=== PATIENT | female | born 1960 ===

== ENCOUNTER 2017-10-23 12:21 | Outpatient (CLI) | payer OTHER ==
[~2017-10-23 12:21] MED LIST: CALTRATE 600 W-1 TAB; NEXIUM20 MG/PACK
== END 2017-10-23 12:25 | disposition home or self-care (01) ==
LOC: MAMO-SONO 12:21
DX: Z12.31 Encounter for screening mammogram for malignant neoplasm of breast (principal); N60.09 Solitary cyst of unspecified breast; N64.89 Other specified disorders of breast

== ENCOUNTER 2018-04-23 12:05 | Outpatient (CLI) | payer OTHER | END 2018-04-23 13:41 | disposition home or self-care (01) | LOC: TOM 12:05 | DX: R10.84 Generalized abdominal pain (principal) ==

== ENCOUNTER 2018-09-10 10:28 | Outpatient (CLI) | payer OTHER | END 2018-09-10 10:59 | disposition home or self-care (01) | LOC: TOM 10:28 | DX: I88.0 Nonspecific mesenteric lymphadenitis (principal) ==

== ENCOUNTER → 2019-08-16 | Outpatient (CLI) | payer OTHER | END | disposition home or self-care (01) | LOC: TOM 10:43 | DX: R10.84 Generalized abdominal pain (principal); Z12.31 Encounter for screening mammogram for malignant neoplasm of breast; N64.89 Other specified disorders of breast ==

== ENCOUNTER → 2020-06-01 | Outpatient (CLI) | payer OTHER | END | disposition home or self-care (01) | LOC: TOM 11:11 | PROVIDERS: ATTEND Internal Medicine | DX: N28.89 Other specified disorders of kidney and ureter (principal); R10.84 Generalized abdominal pain; L04.8 Acute lymphadenitis of other sites; D25.9 Leiomyoma of uterus, unspecified ==

== ENCOUNTER 2020-06-06 13:57 | Outpatient (CLI) | payer OTHER | END 2020-06-06 14:14 | disposition HB | LOC: MRI 13:57 | PROVIDERS: ATTEND Internal Medicine | DX: M48.07 Spinal stenosis, lumbosacral region (principal); M54.5 Low back pain | CPT/HCPCS: 72148 ==

== ENCOUNTER 2020-07-27 09:14 | Outpatient (CLI) | payer OTHER | END 2020-07-27 09:19 | disposition home or self-care (01) | LOC: NUCLEAR 09:14 | PROVIDERS: ATTEND Internal Medicine | DX: R59.0 Localized enlarged lymph nodes (principal) | CPT/HCPCS: 78816; A9552 ==

== ENCOUNTER 2021-03-11 14:27 | Outpatient (CLI) | payer OTHER | END 2021-03-11 14:30 | disposition home or self-care (01) | LOC: PPH VACUNA 14:27 | PROVIDERS: ATTEND Emergency Medicine Pediatric Emergency Medicine | DX: Z23 Encounter for immunization (principal) ==

== ENCOUNTER 2021-08-09 13:23 | Outpatient (CLI) | payer OTHER | END 2021-08-09 13:30 | disposition home or self-care (01) | LOC: MAMO-SONO 13:23 | PROVIDERS: ATTEND Internal Medicine | DX: N73.9 Female pelvic inflammatory disease, unspecified (principal); N63.0 Unspecified lump in unspecified breast; Z12.39 Encounter for other screening for malignant neoplasm of breast ==

== ENCOUNTER 2021-10-14 08:00 | Outpatient (CLI) | payer OTHER | END 2021-10-14 08:30 | disposition home or self-care (01) | LOC: PPH VACUNA 08:00 | PROVIDERS: ATTEND Emergency Medicine Pediatric Emergency Medicine | DX: Z23 Encounter for immunization (principal) ==

== ENCOUNTER 2022-05-31 12:55 | Outpatient (CLI) | payer OTHER | END 2022-05-31 13:53 | disposition home or self-care (01) | LOC: LAB 12:55 | PROVIDERS: ATTEND Internal Medicine | DX: Z20.822 Contact with and (suspected) exposure to COVID-19 (principal); J44.1 Chronic obstructive pulmonary disease with (acute) exacerbation; J14 Pneumonia due to Hemophilus influenzae ==

== ENCOUNTER 2022-06-12 12:39 | Outpatient (CLI) | payer OTHER | END 2022-06-12 12:48 | disposition home or self-care (01) | LOC: TOM 12:39 | PROVIDERS: ATTEND Internal Medicine | DX: J44.1 Chronic obstructive pulmonary disease with (acute) exacerbation (principal); J44.9 Chronic obstructive pulmonary disease, unspecified; J18.0 Bronchopneumonia, unspecified organism ==

== ENCOUNTER 2022-06-19 14:11 | Emergency (ER) | payer OTHER ==
[~2022-06-19] VITALS: Ht 170.2 cm; Wt 74.8 kg
[2022-06-19] MEDS ORDERED: LEVOTHYROXINE25 MCG PO (14:42)
[2022-06-19] MEDS ORDERED: CLONAZEPAM1 M1 PO (14:42)
[2022-06-19] MEDS ORDERED: PANTOPRAZOLE SO20 MG PO (14:42)
== END 2022-06-19 17:32 | disposition home or self-care (01) ==
LOC: ER 14:11
DX: R07.89 Other chest pain (principal)

== ENCOUNTER 2022-12-01 15:05 | Outpatient (CLI) | payer OTHER ==
[~2022-12-01 15:05] MED LIST changes: +CLONAZEPAM1 M1 PO; +LEVOTHYROXINE25 MCG PO; +PANTOPRAZOLE SO20 MG PO
== END 2022-12-01 15:11 | disposition home or self-care (01) ==
LOC: TOM 15:05
PROVIDERS: ATTEND Internal Medicine
DX: R10.9 Unspecified abdominal pain (principal)

== ENCOUNTER 2024-03-07 15:15 | Outpatient (CLI) | payer OTHER | END 2024-03-07 15:32 | disposition home or self-care (01) | LOC: MRI 15:15 | PROVIDERS: ATTEND Internal Medicine | DX: G45.9 Transient cerebral ischemic attack, unspecified (principal) | CPT/HCPCS: 70551 ==

== ENCOUNTER 2024-09-27 14:40 | Outpatient (CLI) | payer OTHER | END 2024-09-27 14:46 | disposition home or self-care (01) | LOC: MAMO-SONO 14:40 | PROVIDERS: ATTEND Internal Medicine | DX: N64.4 Mastodynia (principal); R92.8 Other abnormal and inconclusive findings on diagnostic imaging of breast; Z12.31 Encounter for screening mammogram for malignant neoplasm of breast ==